=== PATIENT | female | born 1960 | race Caucasian/White ===

== ENCOUNTER 2017-03-02 13:06 | Emergency (ER) | payer SELFPAY ==
[~2017-03-02] VITALS: Ht 157.5 cm; Wt 100.0 kg
[~2017-03-02 13:06] MED LIST: ALBU1AER INH; KCL20 PO; LISI10TA PO; PRED20 PO
[2017-03-02 13:09] VITALS: BP 237/102; TEMP 98.4; O2SAT 96
[2017-03-02 13:11] VITALS: BP 237/102; PULSE 87; RESP 17; TEMP 98.2; O2SAT 98
[2017-03-02 13:16] VITALS: BP 216/99; PULSE 83; RESP 16
[2017-03-02] MEDS ORDERED: ALBU6.7H INH (13:31)
[2017-03-02] MEDS ORDERED: AMLO5TAB2 PO (13:31)
[2017-03-02] MEDS ORDERED: SODIUM CHLOR 0.9% 1000 ML INJ 1,000 ML IV ONE (14:15)
[2017-03-02] MEDS ORDERED: KETOROLAC TROMETHAMINE 30 MG/ML (IVP) VIAL IV PUSH ONE (14:15)
[2017-03-02] MEDS ORDERED: ONDANSETRON HCL 4 MG/2 ML VIAL IV PUSH ONE (14:15)
[2017-03-02 14:33] LABS: AUTOMATED NEUTROPHIL # 4.5 TH/MM3 (1.8-7.7); BASOPHIL % 0.6 % (0.0-2.0); EOSINOPHIL # 0.3 TH/MM3 (0-0.4); EOSINOPHIL % 3.6 % (0.0-4.0); HEMATOCRIT 39.8 % (35.0-46.0); HEMO FLAGS DIFF FINAL; LYMPH % 24.2 % (9.0-44.0); LYMPHOCYTE # 1.7 TH/MM3 (1.0-4.8); MEAN CELL VOLUME 84.3 FL (80.0-100.0); MEAN CORPUSCULAR HEMOGLOBIN 28.6 PG (27.0-34.0); MONO % 7.9 % (0.0-8.0); NEUT % 63.7 % (16.0-70.0); PLATELET COUNT 190 TH/MM3 (150-450); RED BLOOD COUNT 4.72 MIL/MM3 (4.00-5.30); RED CELL DISTRIBUTION WIDTH 14.7 % (11.6-17.2)
[2017-03-02 14:37] LABS: BLOOD, URINE TRACE (NEG); COMMENT (UR) CULT NOT INDICATED; CULTURE IF INDICATED CULT NOT INDICATED; GLUCOSE,URINE NEG (NEG); HYALINE CAST, URINE 1 /lpf (RARE); KETONE, URINE NEG (NEG); MUCUS URINE FEW /lpf (OCC); NITRITE,URINE NEG (NEG); PH, URINE 6.5 (5.0-8.5); SQUAMOUS EPITHELIAL CELL URINE 1 /hpf (0-5); URINE COLOR YELLOW (YELLW/STRAW)
[2017-03-02 14:54] LABS: BICARBONATE 27.3 MEQ/L (21.0-32.0); POTASSIUM 3.6 MEQ/L (3.5-5.1)
[2017-03-02 14:57] LABS: INDIRECT BILIRUBIN 0.5 MG/DL (0.0-0.8); TOTAL BILIRUBIN ADULT 0.6 MG/DL (0.2-1.0)
--- NOTE | 2017-03-02 15:06 | PD ---
HPI Chief Complaint: Abdominal Pain Time Seen by Provider: 13:50 Travel History International Travel<30 days: No Contact w/Intl Traveler<30days: No Traveled to known affect area: No History of Present Illness HPI Patient is a 56-year-old female who comes in complaining of right upper quadrant abdominal pain along with occasional nausea and vomiting. She says she has had the pain on and off for the past year, but it has been getting worse and last night she had pain radiating into her back, so she decided to come in. She says she has noticed that fatty foods make her vomit. She last vomited yesterday. She ate cereal this morning with on milk and says that she has been feeling okay since then. She says she has been looking online and is worried that she is having a gallbladder problem. She denies any fever or chills. She denies chest pain or shortness of breath. PFSH Past Medical History Asthma: Yes Hypertension: Yes Tetanus Vaccination: Unknown Influenza Vaccination: Yes ?: Not Menopausal: Yes Tubal Ligation: Yes Past Surgical History Eye Surgery: Yes Gynecologic Surgery: Yes Social History Alcohol Use: No Tobacco Use: No Substance Use: No Allergies-Medications (Allergen,Severity, Reaction): Coded Allergies: Sulfa (Verified Allergy, Intermediate, Hives, 03/02/17) Reported Meds & Prescriptions Reported Meds & Active Scripts Active Reported Amlodipine (Amlodipine Besylate) 5 Mg Tab 5 Mg PO DAILY Proventil Hfa 6.7 GM Inh (Albuterol Sulfate) 90 Mcg/Act Aer 2 Puff INH Q4-6H PRN Review of Systems Except as stated in HPI: all other systems reviewed are Neg General / Constitutional: No: Fever, Chills HENT: No: Headaches, Lightheadedness Cardiovascular: No: Chest Pain or Discomfort Respiratory: No: Shortness of Breath Gastrointestinal: Positive: Nausea, Vomiting, Abdominal Pain Genitourinary: Positive: Urgency, Frequency, No: Dysuria Skin: No Rash, No Change in Pigmentation Neurologic: No: Weakness, Dizziness Physical Exam Narrative GENERAL: Awake and alert, in no acute distress. SKIN: Focused skin assessment warm/dry. HEAD: Atraumatic. Normocephalic. EYES: Pupils equal and round. No scleral icterus. ENT: Mucous membranes pink and moist. NECK: Trachea midline. No JVD. CARDIOVASCULAR: Regular rate and rhythm. No murmur appreciated. RESPIRATORY: No accessory muscle use. Clear to auscultation. Breath sounds equal bilaterally. GASTROINTESTINAL: Abdomen soft, nondistended. Minimal tenderness to the right upper quadrant. No rebound or guarding. MUSCULOSKELETAL: No obvious deformities. No clubbing. No cyanosis. No edema. NEUROLOGICAL: Awake and alert. No obvious cranial nerve deficits. Motor grossly within normal limits. Normal speech. PSYCHIATRIC: Appropriate mood and affect; insight and judgment normal. Data Data Last Documented VS Vital Signs Date Time Temp Pulse Resp B/P Pulse Ox O2 Delivery O2 Flow Rate FiO2 03/02/17 13:16 83 16 216/99 03/02/17 13:11 98.2 98 Room Air Orders Complete Blood Count With Diff (03/02/17 14:07) Basic Metabolic Panel (Bmp) (03/02/17 14:07) Hepatic Functional Panel (03/02/17 14:07) Iv Access Insert/Monitor (03/02/17 14:07) Urinalysis - C+S If Indicated (03/02/17 14:07) Us Abdomen Gallbladder (03/02/17 ) Sodium Chlor 0.9% 1000 Ml Inj (Ns 1000 M (03/02/17 14:15) Ondansetron Inj (Zofran Inj) (03/02/17 14:15) Ketorolac Inj (Toradol Inj) (03/02/17 14:15) Lipase (03/02/17 14:00) Labs Laboratory Tests Test 03/02/17 14:00 White Blood Count 7.0 TH/MM3 Red Blood Count 4.72 MIL/MM3 Hemoglobin 13.5 GM/DL Hematocrit 39.8 % Mean Corpuscular Volume 84.3 FL Mean Corpuscular Hemoglobin 28.6 PG Mean Corpuscular Hemoglobin 34.0 % Concent Red Cell Distribution Width 14.7 % Platelet Count 190 TH/MM3 Mean Platelet Volume 8.6 FL Neutrophils (%) (Auto) 63.7 % Lymphocytes (%) (Auto) 24.2 % Monocytes (%) (Auto) 7.9 % Eosinophils (%) (Auto) 3.6 % Basophils (%) (Auto) 0.6 % Neutrophils # (Auto) 4.5 TH/MM3 Lymphocytes # (Auto) 1.7 TH/MM3 Monocytes # (Auto) 0.6 TH/MM3 Eosinophils # (Auto) 0.3 TH/MM3 Basophils # (Auto) 0.0 TH/MM3 CBC Comment DIFF FINAL Differential Comment Urine Color YELLOW Urine Turbidity CLEAR Urine pH 6.5 Urine Specific [place] 1.011 Urine Protein NEG mg/dL Urine Glucose (UA) NEG mg/dL Urine Ketones NEG mg/dL Urine Occult Blood TRACE Urine Nitrite NEG Urine Bilirubin NEG Urine Urobilinogen LESS THAN 2.0 MG/DL Urine Leukocyte Esterase NEG Urine RBC 2 /hpf Urine WBC 1 /hpf Urine Squamous Epithelial 1 /hpf Cells Urine Hyaline Casts 1 /lpf Urine Mucus FEW /lpf Microscopic Urinalysis Comment CULT NOT INDICATED Sodium Level 139 MEQ/L Potassium Level 3.6 MEQ/L Chloride Level 105 MEQ/L Carbon Dioxide Level 27.3 MEQ/L Anion Gap 7 MEQ/L Blood Urea Nitrogen 12 MG/DL Creatinine 0.78 MG/DL Estimat Glomerular Filtration 76 ML/MIN Rate Random Glucose 85 MG/DL Calcium Level 9.2 MG/DL Total Bilirubin 0.6 MG/DL Direct Bilirubin 0.1 MG/DL Indirect Bilirubin 0.5 MG/DL Aspartate Amino Transf 41 U/L (AST/SGOT) Alanine Aminotransferase 52 U/L (ALT/SGPT) Alkaline Phosphatase 99 U/L Total Protein 7.3 GM/DL Albumin 3.7 GM/DL Lipase 115 U/L [facility] Medical Decision Making Medical Screen Exam Complete: Yes Emergency Medical Condition: Yes Medical Record Reviewed: Yes Differential Diagnosis Pancreatitis versus cholecystitis versus cholelithiasis versus GERD Narrative Course Patient is a 56-year-old female comes in complaining of right upper quadrant pain with occasional nausea and vomiting. Exam shows minimal tenderness. IV established, labs sent. Labs show no acute abnormalities. Right upper quadrant ultrasound performed. Patient given IV fluids and Toradol for pain. US shows no acute abnormalities. Patient will be discharged home, advised to avoid foods that she has noticed to upset her stomach. Advised to follow up with a primary care doctor. Advised to return to the ED as needed for any worsening symptoms. Last 24 hours Impressions Gall Bladder Ultrasound 03/02/17 0000 Signed Impressions: Service Date/Time: Thursday, March 02, 2017 14:34 - CONCLUSION: 1. No sonographic evidence for cholelithiasis or cholecystitis as questioned. 2. Hepatomegaly with diffusely increased echogenicity consistent with hepatic steatosis. Nolberto Wheeler MD Diagnosis Primary Impression: Abdominal pain Qualified Code: R10.11 - Right upper quadrant abdominal pain Patient Instructions: Abdominal Pain (ED), General Instructions Additional Instructions: Avoid milk products and foods that upset your stomach. Follow up with a primary doctor. Return to the ED as needed for any worsening symptoms. Disposition: 01 DISCHARGE HOME Condition: Stable Marquita Qureshi MD Mar 02, 2017 15:06
[2017-03-02 15:30] VITALS: BP 188/90
--- NOTE | 2017-03-02 15:32 | RADRPT ---
EXAM DATE/TIME: 03/02/2017 14:34 [facility] COMPARISON: No previous studies available for comparison. INDICATIONS : Right upper quadrant pain and nausea. MEDICAL HISTORY : Hypertension. Asthma SURGICAL HISTORY : Cataract. Retinal detachment surgery. Uterine ablation. ENCOUNTER: Initial ACUITY: 1 month PAIN SCORE: 8/10 LOCATION: Right upper quadrant MEASUREMENTS: LIVER: 21 cm length COMMON DUCT: 4 mm RIGHT KIDNEY: 11.2 x 6.4 x 5.5 cm FINDINGS: LIVER: Liver demonstrates diffusely increased echogenicity and is enlarged measuring 21 cm. COMMON DUCT: No intraluminal mass or stone visualized. GALLBLADDER: Contains no stones, demonstrates no wall thickening or pericholecystic fluid. PANCREAS: The visualized portions are within normal limits. RIGHT KIDNEY: No evidence of hydronephrosis, stone, or mass. CONCLUSION: 1. No sonographic evidence for cholelithiasis or cholecystitis as questioned. 2. Hepatomegaly with diffusely increased echogenicity consistent with hepatic steatosis. Nolberto Wheeler MD on March 02, 2017 at 15:25 Board Certified Radiologist. This report was verified electronically.
[2017-03-02 15:45] VITALS: RESP 15
[2017-03-02 16:16] VITALS: BP 191/88
== END 2017-03-02 16:32 | disposition home or self-care (01) ==
LOC: NEPD 13:06
DX: R10.11 Right upper quadrant pain (principal); I10 Essential (primary) hypertension; Z88.2 Allergy status to sulfonamides
CPT/HCPCS: 76705; 80048; 80076; 81001; 83690; 85025; 96361; 96374; 96375; 99285; J1885; J2405; J7030

== ENCOUNTER 2017-05-03 14:33 | Emergency (ER) | payer SELFPAY ==
[~2017-05-03] VITALS: Ht 160 cm; Wt 100.0 kg
[~2017-05-03 14:33] MED LIST changes: -ALBU1AER INH; +ALBU6.7H INH; +AMLO5TAB2 PO; -KCL20 PO; -LISI10TA PO; -PRED20 PO
[2017-05-03 14:37] VITALS: BP 177/82; PULSE 97; RESP 20; TEMP 98.6; O2SAT 96
--- NOTE | 2017-05-03 15:20 | RADRPT ---
EXAM DATE/TIME: 05/03/2017 15:12 [facility] COMPARISON: No previous studies available for comparison. INDICATIONS : Heart palpitations. MEDICAL HISTORY : None. SURGICAL HISTORY : None. ENCOUNTER: Initial ACUITY: 1 week PAIN SCORE: 0/10 LOCATION: Bilateral chest FINDINGS: A single view of the chest demonstrates the lungs to be symmetrically aerated without evidence of mas s, infiltrate or effusion. The cardiomediastinal contours are unremarkable. Osseous structures are intact. CONCLUSION: Normal examination. Tripp Muhammad MD on May 03, 2017 at 15:18 Board Certified Radiologist. This report was verified electronically.
[2017-05-03 15:36] VITALS: BP 157/78; PULSE 81; RESP 15; O2SAT 97
[2017-05-03 15:36] LABS: AUTOMATED NEUTROPHIL # 4.6 TH/MM3 (1.8-7.7); BASOPHIL % 0.6 % (0.0-2.0); EOSINOPHIL # 0.2 TH/MM3 (0-0.4); EOSINOPHIL % 3.6 % (0.0-4.0); HEMATOCRIT 40.9 % (35.0-46.0); HEMO FLAGS DIFF FINAL; LYMPH % 20.3 % (9.0-44.0); LYMPHOCYTE # 1.4 TH/MM3 (1.0-4.8); MEAN CELL VOLUME 86.9 FL (80.0-100.0); MEAN CORPUSCULAR HGB CONC 33.4 % (32.0-36.0); MONO % 7.1 % (0.0-8.0); NEUT % 68.4 % (16.0-70.0); PLATELET COUNT 202 TH/MM3 (150-450); RED BLOOD COUNT 4.71 MIL/MM3 (4.00-5.30); RED CELL DISTRIBUTION WIDTH 14.5 % (11.6-17.2); WHITE BLOOD COUNT 6.7 TH/MM3 (4.0-11.0)
[2017-05-03 16:03] LABS: ANION GAP 7 MEQ/L (5-15); BICARBONATE 30.1 MEQ/L (21.0-32.0); BLOOD UREA NITROGEN 18 MG/DL (7-18); CHLORIDE 105 MEQ/L (98-107); GLOMERULAR FILTRATION RATE 58 ML/MIN (>89); POTASSIUM 3.5 MEQ/L (3.5-5.1); SODIUM (NA) 142 MEQ/L (136-145)
[2017-05-03 16:07] LABS: CREATINE KINASE 110 U/L (26-192)
--- NOTE | 2017-05-03 16:13 | PD ---
HPI Chief Complaint: Cardiac Complaint Time Seen by Provider: 15:34 Travel History International Travel<30 days: No Contact w/Intl Traveler<30days: No Traveled to known affect area: No History of Present Illness HPI 56-year-old female complains of palpitations in the left neck. There is loud at night and prevented her from sleeping. She has no chest pain or shortness of breath. No dizziness or weakness. No headache. Duration approximately one week. Severity moderate. It's worse at night. No new or different medication. PFSH Past Medical History Asthma: Yes Hypertension: Yes Tetanus Vaccination: > 5 Years Influenza Vaccination: Yes ?: Not Menopausal: Yes Tubal Ligation: Yes Past Surgical History Eye Surgery: Yes Gynecologic Surgery: Yes Social History Alcohol Use: No Tobacco Use: No Substance Use: No Allergies-Medications (Allergen,Severity, Reaction): Coded Allergies: Sulfa (Sulfonamide Antibiotics) (Unverified Allergy, Intermediate, Hives, 05/03/17) Reported Meds & Prescriptions Reported Meds & Active Scripts Active Reported Amlodipine (Amlodipine Besylate) 5 Mg Tab 5 Mg PO DAILY Proventil Hfa 6.7 GM Inh (Albuterol Sulfate) 90 Mcg/Act Aer 2 Puff INH Q4-6H PRN Review of Systems Except as stated in HPI: all other systems reviewed are Neg General / Constitutional: No: Fever Physical Exam Narrative GENERAL: Well-nourished well-developed 56-year-old female no acute distress SKIN: Warm and dry. HEAD: Atraumatic. Normocephalic. EYES: Pupils equal and round. No scleral icterus. No injection or drainage. ENT: No nasal bleeding or discharge. Mucous membranes pink and moist. NECK: Trachea midline. No JVD. No carotid bruit. CARDIOVASCULAR: Regular rate and rhythm. RESPIRATORY: No accessory muscle use. Clear to auscultation. Breath sounds equal bilaterally. GASTROINTESTINAL: Abdomen soft, non-tender, nondistended. Hepatic and splenic margins not palpable. MUSCULOSKELETAL: Extremities without clubbing, cyanosis, or edema. No obvious deformities. NEUROLOGICAL: Awake and alert. No obvious cranial nerve deficits. Motor grossly within normal limits. Five out of 5 muscle strength in the arms and legs. Normal speech. PSYCHIATRIC: Appropriate mood and affect; insight and judgment normal. Data Data Last Documented VS Vital Signs Date Time Temp Pulse Resp B/P (MAP) Pulse Ox O2 Delivery O2 Flow Rate FiO2 05/03/17 18:50 05/03/17 17:46 78 17 99 Room Air 05/03/17 14:37 98.6 Vital signs reviewed Orders Orders Electrocardiogram (05/03/17 14:39) Complete Blood Count With Diff (05/03/17 14:39) Basic Metabolic Panel (Bmp) (05/03/17 14:39) Ckmb (Isoenzyme) Profile (05/03/17 14:39) Troponin I (05/03/17 14:39) Chest, Single Ap (05/03/17 14:39) Cta Neck W Iv Contrast W 3d (05/03/17 ) CKMB (05/03/17 14:58) CKMB% (05/03/17 14:58) Iohexol 350 Inj (Omnipaque 350 Inj) (05/03/17 18:15) Labs Laboratory Tests Test 05/03/17 14:58 White Blood Count 6.7 TH/MM3 Red Blood Count 4.71 MIL/MM3 Hemoglobin 13.7 GM/DL Hematocrit 40.9 % Mean Corpuscular Volume 86.9 FL Mean Corpuscular Hemoglobin 29.0 PG Mean Corpuscular Hemoglobin Concent 33.4 % Red Cell Distribution Width 14.5 % Platelet Count 202 TH/MM3 Mean Platelet Volume 8.2 FL Neutrophils (%) (Auto) 68.4 % Lymphocytes (%) (Auto) 20.3 % Monocytes (%) (Auto) 7.1 % Eosinophils (%) (Auto) 3.6 % Basophils (%) (Auto) 0.6 % Neutrophils # (Auto) 4.6 TH/MM3 Lymphocytes # (Auto) 1.4 TH/MM3 Monocytes # (Auto) 0.5 TH/MM3 Eosinophils # (Auto) 0.2 TH/MM3 Basophils # (Auto) 0.0 TH/MM3 CBC Comment DIFF FINAL Differential Comment Blood Urea Nitrogen 18 MG/DL Creatinine 0.99 MG/DL Random Glucose 126 MG/DL Calcium Level 8.8 MG/DL Sodium Level 142 MEQ/L Potassium Level 3.5 MEQ/L Chloride Level 105 MEQ/L Carbon Dioxide Level 30.1 MEQ/L Anion Gap 7 MEQ/L Estimat Glomerular Filtration Rate 58 ML/MIN Total Creatine Kinase 110 U/L Creatine Kinase MB 1.4 NG/ML Troponin I LESS THAN 0.02 NG/ML MDM Medical Decision Making Medical Screen Exam Complete: Yes Emergency Medical Condition: Yes Medical Record Reviewed: Yes Differential Diagnosis Aneurysm, dissection, carotid bruit due to plaque, palpitations Narrative Course EKG shows a sinus rhythm with a rate of 80 normal axis and intervals CBC & BMP Diagram 05/03/17 14:58 Calcium Level 8.8 Last 24 hours Impressions Chest X-Ray 05/03/17 1439 Signed Impressions: Service Date/Time: , May 03, 2017 15:12 - CONCLUSION: Normal examination. Tripp Muhammad MD Troponin less than 0.02 CTA neck reveals tortuous carotid arteries bilaterally. At time of reassessment, patient resting comfortably without complaint. Given fairly non-specific nature of complaint and with normal labwork and imaging and exam, discharge home is considered reasonably safe. Follow up with cardiology and primary care. Return precautions discussed. Diagnosis Primary Impression: Palpitations Referrals: Primary Care Physician 2 days Additional Instructions: You have a choice when it comes to health care, and we are glad that you chose [facility]. Hopefully, we have met your expectations on today's visit. You are welcome to return to [facility] at any time, as we are committed to meeting the health care needs of our community. Med/Other Pt SpecificInfo: No Change to Meds Disposition: 01 DISCHARGE HOME Condition: Stable Mauricio Whitt MD May 03, 2017 16:13
[2017-05-03 16:20] LABS: CKMB 1.4 NG/ML (0.5-3.6)
[2017-05-03 17:28] VITALS: BP 154/75; PULSE 81; RESP 16; O2SAT 97
[2017-05-03 17:46] VITALS: BP 154/75; PULSE 78; RESP 17; O2SAT 99
[2017-05-03] MEDS ORDERED: IOHEXOL 350 MG/ML 10 ML VIAL (for RAD DIAG) IVCONTRAST ONE (18:15)
--- NOTE | 2017-05-03 18:36 | RADRPT ---
EXAM DATE/TIME: 05/03/2017 18:06 [facility] COMPARISON: No previous studies available for comparison. INDICATIONS : Hypertension, palpitations in neck. Evaluate for aneurysm. IV CONTRAST: 75 cc Omnipaque 350 (iohexol) IV RADIATION DOSE: 27.08 CTDIvol (mGy) MEDICAL HISTORY : Hypertension. SURGICAL HISTORY : Tubal ligation. ENCOUNTER: Initial ACUITY: 1 day PAIN SCALE: 0/10 LOCATION: Left neck Elevated flow velocities and ICA/CCA ratios have been found to correlate with increased degrees of vessel stenosis, calculated as percentage of diameter relative to a normal segment of distal ICA/CCA. TECHNIQUE: Volumetric scanning was performed using a multirow detector CT scanner. The data was post processed with a variety of visualization algorithms including full-volume maximum intensity projection, multip lanar sliding thin-slab reformation, curved-planar reformation, and surface-rendering techniques. Us ing automated exposure control and adjustment of the mA and/or kV according to patient size, radiatio n dose was kept as low as reasonably achievable to obtain optimal diagnostic quality images. DICOM f ormat image data is available electronically for review and comparison. FINDINGS: AORTIC ARCH: There is a three-vessel origin of the great vessels from the aorta. No evidence of ostial narrowing. RIGHT CAROTID: The common carotid artery is intact. The carotid bulb has a normal configuration without ulceration o r narrowing. The internal carotid artery lumen is smooth without stenosis; the vessel is tortuous. T he external carotid artery is intact. LEFT CAROTID: The common carotid artery is intact. The carotid bulb has a normal configuration without ulceration or narrowing. The internal carotid artery lumen is smooth without stenosis; the vessel is tortuous. The external carotid artery is intact. VERTEBRALS: The vertebral arteries have a symmetric diameter. No stenotic lesions are seen. CONCLUSION: Tortuous bilateral internal carotid arteries. Otherwise normal. Ricky Love MD on May 03, 2017 at 18:32 Board Certified Radiologist. This report was verified electronically.
--- NOTE | 2017-05-04 11:30 | EKG ---
Date Performed: 05/03/2017 Time Performed: 14:49:54 PTAGE: 56 years EKG: Sinus rhythm NORMAL ECG NO PREVIOUS TRACING DOCTOR: Scot Barney Interpretating Date/Time 05/04/2017 11:29:14
== END 2017-05-03 18:57 | disposition home or self-care (01) ==
LOC: NEPC 14:33
DX: R00.2 Palpitations (principal); I10 Essential (primary) hypertension; Z87.09 Personal history of other diseases of the respiratory system
CPT/HCPCS: 70498; 71010; 80048; 82550; 82552; 84484; 85025; 93005; 99285; Q9967